=== PATIENT | male | born 1975 | race Caucasian/White ===

== ENCOUNTER 2017-07-10 03:28 | Emergency (ER) | payer SELFPAY ==
[2017-07-10 03:41] VITALS: O2SAT 99
--- NOTE | 2017-07-10 04:11 | C.PDOC ---
History Of Present Illness 41 year old male who presents to the ER with daughter for an evaluation of his blood pressure. Patient states he has a Hx of intermittent elevations in blood pressure; patient denies any symptoms at this moment but still requests to have his blood pressure checked. Time Seen by Provider: 07/10/17 03:45 Chief Complaint (Nursing): High Blood Pressure History Per: Patient History/Exam Limitations: no limitations Onset/Duration Of Symptoms: Hrs, Intermittent Episodes Current Symptoms Are (Timing): Still Present Associated Symptoms: denies: Chest Pain, Dyspnea, Dizziness, Blurred Vision, Focal Weakness, Headache Quality Of Symptoms: Asymptomatic Exacerbating Factor(s): Pos: None Recent travel outside of the [place]: No Past Medical History Reviewed: Historical Data, Nursing Documentation, Vital Signs Vital Signs: Last Vital Signs Temp 97.7 F 07/10/17 04:13 Pulse 61 07/10/17 04:13 Resp 19 07/10/17 04:13 BP 149/92 H 07/10/17 04:13 Pulse Ox 99 07/10/17 04:21 - Medical History PMH: HTN, Migraine Surgical History: No Surg Hx Family History: States: Unknown Family Hx - Social History Hx Tobacco Use: No Hx Alcohol Use: No Hx Substance Use: No - Immunization History Hx Tetanus Toxoid Vaccination: No Review Of Systems Constitutional: Negative for: Fever, Chills Cardiovascular: Negative for: Chest Pain, Palpitations Respiratory: Negative for: Cough, Shortness of Breath Gastrointestinal: Negative for: Nausea, Vomiting Neurological: Negative for: Weakness, Numbness Physical Exam - Physical Exam Appears: Non-toxic, No Acute Distress Skin: Normal Color, Warm, Dry Head: Atraumatic, Normacephalic Eye(s): bilateral: Normal Inspection, EOMI Oral Mucosa: Moist Chest: Symmetrical Cardiovascular: Rhythm Regular Respiratory: Normal Breath Sounds, No Rales, No Rhonchi, No Wheezing Neurological/Psych: Oriented x3, Normal Speech, Normal Cognition, No Cerebellar Signs ED Course And Treatment ECG: Interpreted By Me, Viewed By Me ECG Rhythm: Sinus Bradycardia ECG Interpretation: Normal Rate From EC O2 Sat by Pulse Oximetry: 99 (Room air) Pulse Ox Interpretation: Normal Progress Note: EKG ordered. Norvasc administered. Patient is currently asymptomatic in the ER and in acute distress; will discharge home with instructions to follow up with PMD for further evaluation. Disposition - Disposition Referrals: Non [facility] Provider, [Primary Care Provider] - Disposition: HOME/ ROUTINE Disposition Time: 04:12 Condition: STABLE Additional Instructions: Please follow up with Dr Ibarra Take meds prescribed Return to ER if worse Prescriptions: amLODIPine [Norvasc] 2.5 mg PO DAILY #14 tab Instructions: Amlodipine (By mouth), Hypertension (ED) Forms: [employer] (Khmer) Print Language: PALAUAN - Clinical Impression Clinical Impression: Elevated blood pressure reading - Scribe Statement The provider has reviewed the documentation as recorded by the Scribaniket Shane All medical record entries made by the Scribe were at my direction and personally dictated by me. I have reviewed the chart and agree that the record accurately reflects my personal performance of the history, physical exam, medical decision making, and the department course for this patient. I have also personally directed, reviewed, and agree with the discharge instructions and disposition.
--- NOTE | 2017-07-10 04:12 | C.PDOC ---
Time Seen by Provider: 07/10/17 03:45 Chief Complaint (Nursing): High Blood Pressure Past Medical History Vital Signs: Last Vital Signs Temp 97.8 F 07/10/17 03:38 Pulse 60 07/10/17 03:41 Resp 23 07/10/17 03:41 BP 169/104 H 07/10/17 03:56 Pulse Ox 99 07/10/17 03:41 - Medical History PMH: HTN, Migraine Family History: States: Unknown Family Hx - Social History Hx Tobacco Use: No Hx Alcohol Use: No Hx Substance Use: No - Immunization History Hx Tetanus Toxoid Vaccination: No ED Course And Treatment O2 Sat by Pulse Oximetry: 99 Disposition Counseled Patient/Family Regarding: Diagnosis, Need For Followup, Rx Given - Disposition Referrals: Non [facility] Provider, [Primary Care Provider] - Disposition: HOME/ ROUTINE Disposition Time: 04:12 Condition: STABLE Additional Instructions: Please follow up with Dr Ibarra Take meds prescribed Return to ER if worse Prescriptions: amLODIPine [Norvasc] 2.5 mg PO DAILY #14 tab Instructions: Hypertension (ED) Forms: [employer] (Romansh) Print Language: HONDURAN - Clinical Impression Clinical Impression: Elevated blood pressure reading
[2017-07-10 04:14] VITALS: BP 149/92; PULSE 61; RESP 19; TEMP 97.7
--- NOTE | 2017-07-13 13:37 | CARD ---
APPROVED REPORT EKG Measurement Heart [id number] <Conclusion> Sinus bradycardia T wave abnormality, consider lateral ischemia Abnormal ECG
== END 2017-07-10 04:20 | disposition home or self-care (01) ==
LOC: SUPCPDRO 03:28 → C.ER 03:28
DX: I10 Essential (primary) hypertension (principal)

== ENCOUNTER 2018-09-26 03:00 | Emergency (ER) | payer MEDICAID, OTHER ==
[2018-09-26 04:09] LABS: SQUAMOUS EPITHIAL < 1 /hpf (0-5); URINE BILIRUBIN NEGATIVE (NEGATIVE); URINE BLOOD NEGATIVE (NEGATIVE); URINE CLARITY Clear (Clear); URINE COLOR Yellow (YELLOW); URINE GLUCOSE (UA) NORMAL (Normal); URINE LEUKOCYTE ESTERASE NEG Leu/uL (Negative); URINE PROTEIN NEGATIVE (NEGATIVE); URINE UROBILINOGEN NORMAL mg/dL (0.2-1.0)
[2018-09-26 04:30] VITALS: BP 116/72; PULSE 62; RESP 18; TEMP 97.8; O2SAT 98
--- NOTE | 2018-09-26 04:41 | C.PDOC ---
History Of Present Illness 42 year old male presents to the ER with a complaint of right lower back pain for the past 3 days that has been progressively worsening and radiating to the right lower leg and buttock. Patient has a Hx of heavy lifting and bending down at work. He reports the pain worsened with movement and ambulation, he took nothing at home for the pain. Denies trauma, urinary symptoms, incontinence, weakness, or numbness. Time Seen by Provider: 09/26/18 03:15 Chief Complaint (Nursing): Back Pain History Per: Patient History/Exam Limitations: no limitations Onset/Duration Of Symptoms: Days (3) Current Symptoms Are (Timing): Still Present Quality Of Discomfort: Unable To Describe Associated Symptoms: None Exacerbating Factor(s): Movement, Other (Ambulation) Recent travel outside of the [place]: No Past Medical History Reviewed: Historical Data, Nursing Documentation, Vital Signs Vital Signs: Last Vital Signs Temp 97.8 F 09/26/18 04:29 Pulse 62 09/26/18 04:29 Resp 18 09/26/18 04:29 BP 116/72 09/26/18 04:29 Pulse Ox 98 09/26/18 04:29 - Medical History PMH: HTN, Migraine Family History: States: Unknown Family Hx - Social History Hx Tobacco Use: No Hx Alcohol Use: No Hx Substance Use: No - Immunization History Hx Tetanus Toxoid Vaccination: No Review Of Systems Genitourinary: Negative for: Dysuria, Incontinence, Hematuria Musculoskeletal: Positive for: Back Pain (Right sided radiating to right lower leg and buttock) Neurological: Negative for: Weakness, Numbness Physical Exam - Physical Exam Appears: Non-toxic Skin: Normal Color, Warm, Dry Head: Atraumatic, Normacephalic Eye(s): bilateral: Normal Inspection Oral Mucosa: Moist Gastrointestinal/Abdominal: Soft, No Tenderness, Other (Obese) Back: No CVA Tenderness, No Vertebral Tenderness, Paraspinal Tenderness (Right lumbar), Straight Leg Raising (Positive to left) Extremity: Normal ROM (x4) Neurological/Psych: Oriented x3, Normal Speech, Normal Motor, Normal Sensation Gait: Steady (with mild limp) ED Course And Treatment O2 Sat by Pulse Oximetry: 98 (Room air) Pulse Ox Interpretation: Normal Progress Note: Urinalysis ordered, results were negative. Toradol and valium administered. Patient reports improvement of pain, he is resting comfortably in the ER in no acute distress, ambulatory with steady gait, vitals are stable, will discharge home with Rx and instructions to follow up with PMD. Disposition Counseled Patient/Family Regarding: Diagnosis, Need For Followup, Rx Given - Disposition Referrals: Regine Ibarra MD [Medical Doctor] - Disposition: HOME/ ROUTINE Disposition Time: 04:39 Condition: GOOD Additional Instructions: Please follow up with PMD Take medications as directed Return to ER if worse Prescriptions: Cyclobenzaprine [Cyclobenzaprine HCl] 10 mg PO BID #10 tab Naproxen [Naprosyn] 1 tab PO BID PRN #25 tab PRN Reason: Pain Instructions: Sciatica (DC) Forms: [employer] (Polish) Print Language: OCCITAN - Clinical Impression Clinical Impression: Sciatica - PA / ACCOUNT MANAGEMENT ASSISTANT / Resident Statement MD/DO has reviewed & agrees with the documentation as recorded. - Scribe Statement The provider has reviewed the documentation as recorded by the Scribe Adams Shane All medical record entries made by the Deborahibe were at my direction and personally dictated by me. I have reviewed the chart and agree that the record accurately reflects my personal performance of the history, physical exam, medical decision making, and the department course for this patient. I have also personally directed, reviewed, and agree with the discharge instructions and disposition.
== END 2018-09-26 04:46 | disposition home or self-care (01) ==
LOC: C.ER 03:00
DX: M54.31 Sciatica, right side (principal)
CPT/HCPCS: 81001; 96372; 99284; J1885